=== PATIENT | female | born 1965 | race Caucasian/White ===

== ENCOUNTER 2016-12-22 17:52 | Inpatient (IN) | payer SELFPAY ==
--- NOTE | 2016-12-22 18:22 | Emergency Department Report ---
Chief Complaint: Chest Pain Stated Complaint: CHEST PAIN Time Seen by Provider: 12/22/16 18:17 - HPI History of Present Illness: Patient reports chest pain that started yesterday evening. Patient reports having a s/s of a cold and using OTC Mucinex the last three weeks. Patient denies any difficulty breathing - ROS Review of Systems: all other systems are unremarkable except for documentation in HPI - Exam Vital Signs: Vital Signs 12/22/16 18:02 Temperature 98.2 F Pulse Rate 112 H Respiratory 20 Rate Blood Pressure 157/98 O2 Sat by Pulse 99 Oximetry Physical Exam: Gen: well developed and nourished, NAD Cardio: heart sounds present S1-S2, tachycardia, no ectopy, murmur or gallops Resp: even and unlabored, lungs CTA donavon, no wheezing, rales or rhonchi MSE screening note: Focused history and physical exam performed. Due to findings the following was ordered: laboratory and radiology studies ordered ED Disposition for MSE Condition: Stable
[2016-12-22 20:02] LABS: Alanine Aminotransferase 11 units/L (7-56); BUN/Creatinine Ratio 12.85; Bilirubin,Total 0.3 mg/dL (0.1-1.2); Blood Urea Nitrogen 9 mg/dL (7-17); Calcium 9.3 mg/dL (8.4-10.2); Carbon Dioxide 25 mmol/L (22-30); Creatine Kinase MB < 1.0 ng/mL (0.0-4.0); Glucose 131 mg/dL (65-100)
[2016-12-22 20:03] LABS: Albumin 4.4 g/dL (3.9-5); Albumin/Globulin Ratio 1.2 %; Alkaline Phosphatase 76 units/L (35-129); Anion Gap 21 mmol/L; Basophils % (Auto) 0.2 % (0.0-1.8); Chloride 98.1 mmol/L (98-107); Creatine Kinase 111 units/L (30-135); Hematocrit 38.9 % (30.3-42.9); Hemoglobin 12.7 gm/dl (10.1-14.3); Mean Corpuscular HGB Conc 33 % (30-34); Mean Corpuscular Hemoglobin 29 pg (28-32); Mean Corpuscular Volume 88 fl (79-97); Platelet Count 568 K/mm3 (140-440); Potassium 3.9 mmol/L (3.6-5.0); Red Blood Count 4.42 M/mm3 (3.65-5.03); Red Cell Distribution Width 14.1 % (13.2-15.2); Sodium 140 mmol/L (137-145)
[2016-12-22 20:17] LABS: INR 0.92 (0.87-1.13)
[2016-12-22 20:18] LABS: Partial Thromboplastin Time 32.9 Sec. (24.2-36.6)
--- NOTE | 2016-12-23 09:35 | XRay Report ---
Chest 2 views: History: Chest pain. Findings: Normal cardiomediastinal silhouette. Trachea is midline. No consolidation, pneumothorax or pleural effusion. Impression: No acute cardiopulmonary findings.
[2016-12-23] MEDS ORDERED: LOVENOX SUB-Q ONE ×2 (10:44→15:04)
[2016-12-23] MEDS ORDERED: BABY ASPIRIN PO ONE (10:44)
[2016-12-23 11:16] LABS: INR 1.05 (0.87-1.13)
[2016-12-23 11:17] LABS: Partial Thromboplastin Time 33.9 Sec. (24.2-36.6)
--- NOTE | 2016-12-23 11:21 | Emergency Department Report ---
ED Chest Pain HPI - General Chief Complaint: Chest Pain Stated Complaint: CHEST PAIN Time Seen by Provider: 12/23/16 09:52 Source: patient Mode of arrival: Ambulatory Limitations: No Limitations - History of Present Illness Initial Comments: Patient complains of intermittent chest tightness which radiates to her neck and jaw since yesterday. At this point she is chest pain-free. She states that she felt a little sweaty with one of the episodes. She did not report shortness of breath or nausea or vomiting. She denied dizziness. She states that she's never had chest discomfort like this before. She does not mention that she had a virus 3 weeks ago. He states that she did not have chest pain at that time. She has a history of dyslipidemia and takes a statin. She denies hypertension but has had some labile hypertension while here. MD Complaint: chest pain -: Gradual Onset: during rest Pain Location: substernal Pain Radiation: jaw/teeth Severity: moderate Severity scale (0 -10): 0 Quality: tightness Consistency: intermittent Improves With: nothing Worsens With: nothing re: other Treatments Prior to Arrival: none Aspirin use within the Past 7 Days: (0) No - Related Data Home Medications Medication Instructions Recorded Confirmed Last Taken Unobtainable 12/22/16 12/22/16 Unknown Allergies Allergy/AdvReac Type Severity Reaction Status Date / Time No Known Allergies Allergy Unverified 12/22/16 18:02 BRIAN score - Brian Score Age > 65: (0) No Aspirin use within the Past 7 Days: (0) No 3 or more CAD Risk Factors: (1) Yes 2 or more Angina events in past 24 hrs: (1) Yes Known CAD with more than 50% Stenosis: (0) No Elevated Cardiac Markers: (0) No ST Deviation Greater than 0.5mm: (0) No BRIAN Score: 2 ED Review of Systems ROS: Stated complaint: CHEST PAIN Other details as noted in HPI Constitutional: denies: chills, fever Eyes: denies: eye pain, eye discharge, vision change ENT: denies: ear pain, throat pain Respiratory: denies: cough, shortness of breath, wheezing Cardiovascular: chest pain. denies: palpitations Endocrine: no symptoms reported Gastrointestinal: denies: abdominal pain, nausea, diarrhea Genitourinary: denies: urgency, dysuria, discharge Musculoskeletal: denies: back pain, joint swelling, arthralgia Skin: denies: rash, lesions Neurological: denies: headache, weakness, paresthesias Psychiatric: denies: anxiety, depression Hematological/Lymphatic: denies: easy bleeding, easy bruising ED Past Medical Hx - Past Medical History Previous Medical History?: Yes Hx Hypertension: Yes Hx Diabetes: Yes - Surgical History Past Surgical History?: Yes Hx Breast Surgery: Yes (reduction) Additional Surgical History: x 2, Partial hysterectomy - Family History Family history: no significant - Social History Smoking Status: Former Smoker Substance Use Type: None - Medications Home Medications: Home Medications Medication Instructions Recorded Confirmed Last Taken Type Unobtainable 12/22/16 12/22/16 Unknown History ED Physical Exam - General Limitations: No Limitations General appearance: alert, in no apparent distress - Head Head exam: Present: atraumatic, normocephalic - Eye Eye exam: Present: normal appearance. Absent: scleral icterus - ENT ENT exam: Present: mucous membranes moist - Neck Neck exam: Present: normal inspection - Respiratory Respiratory exam: Present: normal lung sounds bilaterally. Absent: respiratory distress - Cardiovascular Cardiovascular Exam: Present: regular rate, normal rhythm. Absent: systolic murmur, diastolic murmur, rubs, gallop - GI/Abdominal GI/Abdominal exam: Present: soft, normal bowel sounds. Absent: distended, tenderness, guarding, rebound, rigid - Extremities Exam Extremities exam: Present: normal inspection - Back Exam Back exam: Present: normal inspection - Neurological Exam Neurological exam: Present: alert, oriented X3, CN II-XII intact. Absent: motor sensory deficit - Psychiatric Psychiatric exam: Present: normal affect, normal mood - Skin Skin exam: Present: warm, dry, intact, normal color. Absent: rash ED Course Vital Signs 12/22/16 12/22/16 12/23/16 18:02 21:37 07:58 Temperature 98.2 F 98.4 F Pulse Rate 112 H 109 H 79 Respiratory 20 18 16 Rate Blood Pressure 157/98 194/90 Blood Pressure 137/79 [Left] O2 Sat by Pulse 99 96 98 Oximetry - Reevaluation(s) Reevaluation #1: Discussed with Dr. Matos and admitted. 12/23/16 11:25 ED Medical Decision Making - Lab Data Result diagrams: 12/22/16 19:28 12/22/16 19:28 - EKG Data -: EKG Interpreted by Me EKG shows normal: sinus rhythm, axis, intervals, QRS complexes, ST-T waves Rate: normal - EKG Data Interpretation: normal EKG - Radiology Data interpreted by me: Chest x-ray no acute process Critical care attestation.: If time is entered above; I have spent that time in minutes in the direct care of this critically ill patient, excluding procedure time. ED Disposition Clinical Impression: Labile hypertension, Dyslipidemia Chest pain Qualifiers: Chest pain type: unspecified Qualified Code(s): R07.9 - Chest pain, unspecified Disposition: OP ADMITTED IP TO THIS HOSP Is pt being admited?: Yes Does the pt Need Aspirin: Yes Condition: Stable Instructions: Chest Pain (ED), Hypertension (ED) Referrals: PRIMARY CARE, [Primary Care Provider] - 3-5 Days Time of Disposition: 11:26
[2016-12-23] MEDS ORDERED: BABY ASPIRIN ONE (15:04)
--- NOTE | 2016-12-23 15:23 | Event Note ---
Date: 12/23/16 See H/p in reports Chest pain r/o [facility] G[facility] HTN T2DM
[2016-12-23] MEDS ORDERED: MILK OF MAGNESIA PO PRN (15:24)
[2016-12-23] MEDS ORDERED: DILAUDID IV PRN (15:24)
[2016-12-23] MEDS ORDERED: TYLENOL PO PRN (15:24)
[2016-12-23] MEDS ORDERED: ZOFRAN IV PRN (15:24)
[2016-12-23] MEDS ORDERED: PERCOCET 5/325 PO PRN (15:24)
[2016-12-23] MEDS ORDERED: DULCOLAX PR PRN (15:24)
[2016-12-23] MEDS ORDERED: AMBIEN PO PRN (15:24)
[2016-12-23] MEDS ORDERED: D50W (25GM) IV PRN (15:24)
[2016-12-23] MEDS ORDERED: SODIUM CHLORIDE FLUSH SYRINGE 10 ML IV PRN (15:34)
[2016-12-23 16:44] LABS: Creatine Kinase 72 units/L (30-135)
[2016-12-23 16:46] LABS: Creatine Kinase MB < 1.0 ng/mL (0.0-4.0)
[2016-12-23] MEDS: ASPIRIN PO SCH (17:17)
[2016-12-23] MEDS: NOVOLOG SUB-Q SCH ×2 (17:35→22:43)
--- NOTE | 2016-12-23 18:06 | History and Physical Report ---
CHIEF COMPLAINT: Chest tightness since yesterday. HISTORY OF PRESENT ILLNESS: A 51-year-old -[place] female who presents with left-sided chest pain, radiated into the right side of the neck. Chest pain is intermittent in nature. Pain is about 8 on a scale of 1-10. No palpitation. No diaphoresis. No nausea, no vomiting. The patient had a right viral infection 3 weeks ago. Did not have any chest pain at that time. The patient has history of hypertension, hyperlipidemia and diabetes. PAST MEDICAL HISTORY: As mentioned, significant for hypertension, diabetes, and hyperlipidemia. PAST SURGICAL HISTORY: Significant for x 2 and partial hysterectomy. FAMILY HISTORY: Significant for hypertension. SOCIAL HISTORY: Used to smoke in the past, not anymore. CURRENT MEDICATIONS: Unavailable. Nurse was asked to reconciled them. REVIEW OF SYSTEMS: CONSTITUTIONAL: No fever, no chills, no weight loss, no weight gain. HEENT: No sore throat, no postnasal drip. CARDIOVASCULAR AND RESPIRATORY: As mentioned in the history of present illness. Left-sided chest tightness with radiation to the right side of the neck. No palpitations, no diaphoresis. GASTROINTESTINAL: No nausea, no vomiting, no diarrhea. GENITOURINARY: No dysuria, no flank pain. No hematuria. EXTREMITIES: No muscle pains or joint pains. CENTRAL NERVOUS SYSTEM: No syncope, no seizures. SKIN: No rashes. HEMATOLOGIC AND LYMPHATIC: No lymphadenopathy. No easy bruising. PHYSICAL EXAMINATION: GENERAL: Middle-aged female, cooperative during examination. VITAL SIGNS: Blood pressure 157/98, temperature is 98.2, pulse is 112, respirations 20, sats are 99%. HEENT: Unremarkable. Pupils equal and reactive. NECK: Supple, no lymphadenopathy, no thyromegaly. LUNGS: Clear to auscultation and percussion. Good air entry. CHEST: Normal. CARDIOVASCULAR: S1, S2 heard. No gallop, no murmur, no rub. Apical impulse in left fifth intercostal space and midclavicular line. ABDOMEN: Soft and benign. No hepatosplenomegaly. No guarding, no rigidity. Hernial orifices are normal. EXTREMITIES: Good pedal pulses. No pedal edema. CENTRAL NERVOUS SYSTEM: Alert and oriented x 4. NEUROLOGIC: Nonfocal exam. SKIN: Normal. LABORATORY DATA: White count is 17,000, H and H is 12.7 and 38.9, platelet count is 562,000. Sodium is 140, potassium is 3.9, chloride is 98.1. BUN and creatinine is 9 and 0.7, glucose is 131. LFTs are normal. EKG shows heart rate of 91 per minute, normal sinus rhythm, no ST-T wave changes, no LVH. EKG interpreted by me. ASSESSMENT AND PLAN: 1. Chest pain, rule out myocardial infarction, chest pain protocol. Serial cardiac enzymes and Lexiscan in the morning. First CK is negative. CK is 111 and CK-MB is less than 1.0. 2. Hypertension, uncontrolled. The patient's home medications are not known. We will add losartan 100 mg daily. Better choice given middle-age and no future pregnancies. 3. Type 2 diabetes mellitus. Glucose is around 130. Accu-Cheks a.c. and at bedtime and cover moderate dose sliding scale coverage. Check hemoglobin A1c. Maybe the patient needs to be on metformin 500 mg b.i.d. 4. Hyperlipidemia, not on statins. 5. Deep venous thrombosis prophylaxis, Lovenox 40 mg subcutaneous daily. JOB# [id number] VSM/NTS
[2016-12-23] MEDS ORDERED: LOVENOX SUB-Q SCH (22:00)
[2016-12-23 22:43] LABS: Creatine Kinase 72 units/L (30-135)
[2016-12-23 22:49] LABS: Creatine Kinase MB < 1.0 ng/mL (0.0-4.0)
--- NOTE | 2016-12-24 09:56 | Admit Criteria Form ---
Admission Criteria Documentation: CHEST PAIN Clinical Indications for Admission to Inpatient Care (Place 'X' for any and all applicable criteria): Admission is indicated for chest pain and ANY ONE of the following(1)(2)(3)(4)(5 ): [ ]I. Angina with acute coronary syndrome (Also use Myocardial Infarction or Angina guideline) [ ]II. Hemodynamic instability [X]III. Angina needing acute intervention as indicated by ALL of the following( 11)(12): [X]a) Unstable angina is present as indicated by angina that is ANY ONE of the following: [X]i) New onset [ ]ii) Nocturnal [ ]iii) Prolonged at rest [ ]iv) Progressive [X]b) Angina warrants acute intervention as indicated by ANY ONE of the following: [ ]i) Recurrent angina (e.g, not responding as previously to treatment) [ ]ii) Angina at rest or with low-level activities despite initial medical therapy [ ]iii) New or presumably new ST-segment depression on ECG [ ]iv) Signs or symptoms of heart failure (eg, dyspnea, pulmonary edema) [ ]v) New or worsening mitral regurgitation [ ]vi) Hemodynamic instability [ ]vii) Dangerous arrhythmia (eg, sustained ventricular tachycardia) [ ]viii) History of percutaneous coronary intervention within 6 months [ ]ix) History of coronary artery bypass graft surgery [X]x) BRIAN risk score of 2 or greater[A] [X]xi) History of Diabetes(14) [ ]xii) High-risk cardiac ischemia findings on noninvasive testing (e.g, echocardiogram, treadmill testing, nuclear scan) [ ]xiii) Chronic renal insufficiency (ie, estimated GFR less than 60 mL/min/1.732m) [ ]xiv) Left ventricular ejection fraction less than 40% [ ]IV. Evidence of CT (eg, cardiac biomarkers positive, ST-segment elevation on ECG) also use Myocardial Infarction Criteria Form. [ ]V. Pulmonary edema [ ]. Respiratory distress [ ]VII. Chest pain indicative of serious diagnosis other than coronary artery disease (eg, aortic dissection) [ ]VIII. Contraindications and/or Inappropriate clinical situations for Observational Care in patients with Chest Pain, when ANY ONE of the following is required: [ ]a) Patient with risk factor for pulmonary embolism, acute coronary syndrome and myocardial infarction (18) [ ]b) Patient with Pulmonary embolism require an average LOS of 4.3 days, therefore emergency department observation management is inappropriate 18,23 [ ]c) Painful condition/s in the elderly, have the highest rate of recidivism after emergency department observation management (10.8%) 20,21,22 [ ]d) Elevated cardiac biomarker requires intensive and exhaustive care (19) [ ]IX. General contraindications and/or Inappropriate clinical situations for Observational Care in patients with Chest Pain, when ANY ONE of the following is required: [ ]a) Prediction of prolongation of LOS based on ANY ONE of the following may be considered as a contraindication for observational care 2, 3, 4, 5, 6, 7, 8, 9, 10, 11 [ ]i) Age > 65 yrs. [ ]ii) Patient arriving by ambulance [ ]iii) Patient with high acuity [ ]iv) Patient requiring vital sign monitoring [ ]v) Patient on IV medication [ ]b) Systolic blood pressures 180mmHg 3,12 [ ]c) Patient with altered mental status including delirium and other alteration of consciousness, (3) [ ]d) Patient whose discharge disposition will be to a alf home or rehabilitation home should not be managed in Emergency Department Observation Unit. CMS rule requires 3 days hospital stay before such placement. 3,13 [ ]e) Patient with failure to thrive due to broad array of etiologies 3,16,17 [ ]f) Inability to ambulate 3,14 Extended stay beyond goal length of stay may be needed for (1)(28): [ ]a) Specific condition diagnosed after evaluation (eg, pulmonary embolism, aortic dissection) [ ]b) Unstable angina [ ]c) Continued suspicion of acute coronary syndrome with inability to complete needed cardiac evaluation (eg, patient clinically unable to undergo stress testing) [ ]d) Myocardial infarction (Contents from ANGINA and CHEST PAIN clinical indications for admission to inpatient care have been integrated in this form) The original [employer] content created by [employer] has been revised. The portions of the content which have been revised are identified through the use of italic text or in bold, and [employer] [facility] has neither reviewed nor approved the modified material. All other unmodified content is copyright [employer]. Please see references footnoted in the original [employer] [facility] hospital[facility] edition 2016 Admission Criteria Met: Yes
--- NOTE | 2016-12-24 11:19 | Treadmill Report ---
NUCLEAR STRESS TEST IMAGING PROTOCOL: The patient received 10 mCi of Technetium 99m Tetrofosmin for resting image and 28 mCi of Technetium 99m Tetrofosmin for stress imaging. The imaging for the whole procedure was completed 30-90 minutes following the initial injection of Technetium 99m tetrofosmin. The SPECT imaging in the 180 degree arc was performed in the right anterior oblique projection. Computerized reconstruction of the images was performed for analysis. IMAGING RESULTS: Normal cavity size from stress to rest. Normal distribution of radionuclide in the anterior, inferior, septal, and apical regions. Gated SPECT, EF 57% with no wall motion abnormalities. The patient exercised on Lyndon protocol for 6 minutes. No EKG changes suggestive of ischemia and no exaggerated BP. SUMMARY: 1. Negative treadmill EKG, 6 minutes Lyndon protocol. 2. Fair exercise capacity. 3. No exaggerated BP response to exercise. 4. Normal rest and stress myocardial perfusion scan. No significant stress ischemia. No wall motion abnormality. Gated SPECT, EF 57%. [facility]# [id number] YVON/SUE
[2016-12-24] MEDS: NOVOLOG SUB-Q SCH ×2 (11:50→11:52)
[2016-12-24] MEDS: ASPIRIN PO SCH (11:52)
--- NOTE | 2016-12-24 12:02 | Discharge Summary ---
Providers - Providers Date of Admission: 12/23/16 11:13 Date of discharge: 12/24/16 Attending physician: KATHLEEN CHOE 12/23/16 Consult to Cardiac Rehabilitation [CONS] Routine Reason For Exam: Phase I Primary care physician: [employer] Hospitalization Reason for admission: chest pain Condition: Stable Pertinent studies: Chest x-ray Stress test (treadmill) Hospital course: Patient is a 50 years old obese -Chinese female with hypertension, diabetes and hyperlipidemia who presented to the hospital for chest pain. Acute coronary syndrome was excluded based on EKG, serial cardiac enzymes and negative stress test. Her symptoms could be secondary to GERD. She is started on Pepcid and discharged in stable condition with PCP follow-up. Discharge diagnosis: Chest pain likely secondary to GERD Hypertension Diabetes Hyperlipidemia Disposition: DISCHARGED TO HOME OR SELFCARE Time spent for discharge: 35 minutes Core Measure Documentation - Palliative Care Palliative Care/ Comfort Measures: Not Applicable - Core Measures Any of the following diagnoses?: none Exam - Physical Exam Narrative exam: Patient seen and examined: - Constitutional Vitals: Temp Pulse Resp BP Pulse Ox 97.9 F 90 18 143/88 96 12/24/16 07:37 12/24/16 10:00 12/24/16 10:00 12/24/16 07:37 12/24/16 10:00 General appearance: Present: no acute distress - EENT Eyes: Present: PERRL, EOM intact - Neck Neck: Present: supple, normal ROM. Absent: masses or JVD - Respiratory Respiratory effort: normal Respiratory: bilateral: CTA, negative: rales, rhonchi - Cardiovascular Rhythm: regular Heart Sounds: Present: S1 & S2. Absent: systolic murmur - Extremities Extremities: no ischemia - Abdominal General gastrointestinal: Present: soft, non-tender, non-distended, normal bowel sounds - Integumentary Integumentary: Present: warm, dry. Absent: jaundice, rash - Psychiatric Psychiatric: cooperative - Neurologic Neurologic: CNII-XII intact, no focal deficits Plan Activity: advance as tolerated Diet: low cholesterol, low salt, diabetic Follow up with: PRIMARY CARE, [Primary Care Provider] - 3-5 Days Prescriptions: Aspirin [Adult Low Dose Aspirin EC] 81 mg PO DAILY #30 tablet. Lovastatin [Altoprev] 20 mg PO QPM #30 tab.er.24h metFORMIN [Glucophage] 500 mg PO BID #60 tablet Famotidine [Pepcid] 20 mg PO BID #60 tablet Lisinopril/Hydrochlorothiazide [Zestoretic 20-25 mg] 1 tab PO QDAY #30 tablet
[2016-12-24 12:21] VITALS: BP 128/72
== END 2016-12-24 15:00 | disposition home or self-care (01) | DRG 392 ==
LOC: ED 17:52 → 4A 12-23 11:13
PROVIDERS: ADMIT Internal Medicine; ATTEND Internal Medicine
DX: K21.9 Gastro-esophageal reflux disease without esophagitis (principal); R07.9 Chest pain, unspecified; I10 Essential (primary) hypertension; E78.5 Hyperlipidemia, unspecified; E11.9 Type 2 diabetes mellitus without complications; Z87.891 Personal history of nicotine dependence; Z90.711 Acquired absence of uterus with remaining cervical stump; Z82.49 Family history of ischemic heart disease and other diseases of the circulatory system
CPT/HCPCS: 36415; 71020; 78452; 80053; 82550; 82553; 82962; 83880; 84484; 85025; 85610; 85730; 93005; 93010; 93017; 96372; A9502; J1650